=== PATIENT | male | born 1945 | race Caucasian/White ===

== ENCOUNTER 2018-11-22 08:46 | Inpatient (IN) ==
[2018-11-22] MEDS ORDERED: DUONEB (A & A) INH ONE (09:11)
--- NOTE | 2018-11-22 09:15 | PROVIDER DOCUMENTATION ---
HPI-Respiratory General - General Chief Complaint: Shortness of Breath Stated Complaint: OXYGEN LEVEL LOW,NAUSEA,LYLE Time Seen by Provider: 11/22/18 09:04 Source: patient, family Allergies/Adverse Reactions: Patient Allergies Allergy/AdvReac Type Severity Reaction Status Date / Time No Known Allergies Allergy Verified 11/22/18 08:55 Home Medications: Home Medication List Medication Instructions Recorded Confirmed Last Taken Type Allopurinol [Zyloprim] 100 mg PO DAILY 10/31/12 11/22/18 05/02/17 History Verapamil [Isoptin] 240 mg PO DAILY 10/31/12 11/22/18 05/02/17 History Cholecalciferol (Vitamin D3) 400 unit PO DAILY 03/13/15 11/22/18 05/02/17 His tory [Vitamin D3] Cyanocobalamin (Vitamin B-12) 1,000 mcg PO DAILY 03/13/15 11/22/18 05/02/17 History [Vitamin B-12] Hydrocodone/Acetaminophen [[place] 1 each PO 3-4XDAY PRN PRN #20 12/28/15 11/22/18 05/02/17 Rx 7.5-325 Tablet] tablet Metformin [Glucophage] 500 mg PO BID CC 12/28/15 11/22/18 05/02/17 History Aspirin [Aspir-Low] 81 mg PO DAILY 11/22/18 11/22/18 Unknown History Hydrochlorothiazide 12.5 mg PO DAILY 11/22/18 11/22/18 Unknown History Ondansetron Odt [Zofran 8Mg Odt] 8 mg PO Q8H PRN PRN 11/22/18 11/22/18 Unknown History Ranitidine HCl 300 mg PO DAILY 11/22/18 11/22/18 Unknown History Trandolapril 4 mg PO DAILY 11/22/18 11/22/18 Unknown History - History of Present Illness-Resp Quality of Pain: reports: none Onset/Duration: reports: gradual, 24 hours ago Timing: reports: still present Context: reports: other (COPD history and recent pulm contusion) Exposure: reports: unknown cause Cough Quality/Degree: reports: mild Episode Frequency: chronic episodes Current Respiratory Medication Therapy: Initiated other (has "inhaler" at home but hasn't used it.) Associated Symptoms: reports: cough, dizziness, other (hypoxia on home O2 device) Similar Symptoms Previously?: Yes Recently seen or treated by another doctor?: Yes Review of Systems - Adult - REVIEW OF SYSTEMS - ADULT Constitutional: reports: no symptoms reported Eyes: reports: no symptoms reported Ears, Nose, Mouth & Throat: reports: no symptoms reported Cardiovascular: reports: see HPI Respiratory: reports: see HPI Gastrointestinal: reports: nausea (mild intermittent) Genitourinary: reports: no symptoms reported Musculoskeletal: reports: no symptoms reported Integumentary: reports: no symptoms reported Neurological: reports: dizziness/vertigo Psychiatric: reports: no symptoms reported Endocrine: reports: no symptoms reported Hematologic/Lymphatic: reports: no symptoms reported Allergic/Immunologic: reports: no symptoms reported All Other Systems: Reviewed and Negative Past History - Adult - PAST MEDICAL HISTORY-ADULT Review of Records: reports: Old Records Reviewed Major Childhood Illnesses: reports: denies history Cardiovascular: reports: HTN Musculoskeletal: reports: chronic pain (back) Endocrine/Immune: reports: Diabetes Other Conditions: reports: denies history - PRIOR SURGERIES/PROCEDURES Surgical/Procedure History: reports: appendectomy, cholecystectomy, back/neck (back) - IMMUNIZATION STATUS Childhood Immunizations: See Nurse Assessment Flu Vaccine: See Nurse Assessment - FAMILY HISTORY Family History: reviewed, not pertinent Physical Exam-General - PHYSICAL EXAM-ADULT Initial Vital Signs Reviewed: Yes - CONSTITUTIONAL General Appearance: appears well, mild distress - EYES Eyes: PERRL/EOMI, pink conjunctivae - HEAD, EARS, NOSE, MOUTH & THROAT HENMT: normocephalic/atraumatic, moist mucous membranes - NECK Neck: non-tender, full range of motion, supple - RESPIRATORY Respiratory: chest non-tender, lungs clear, normal breath sounds, no accessory muscle use. negative: accessory muscle use - CARDIOVASCULAR Cardiovascular: normal peripheral pulses, regular rate, rhythm, no edema - GASTROINTESTINAL (ABDOMEN) Abdominal Exam: normal bowel sounds, non tender, soft - MUSCULOSKELETAL Back Exam: normal inspection, no CVA tenderness, no vertebral tenderness Extremity: normal range of motion, non-tender, normal inspection, no pedal edema - SKIN Integumentary: normal color, normal turgor, warm/dry - NEUROLOGIC Neurologic: credit intern II-XII nml as tested, grossly normal, no motor/sensory deficits - PSYCHIATRIC Psych/Mental Status: normal mood/affect, normal thought content, normal thought process, oriented x 3 Progress - PLAN OF CARE/RESULTS Progress/Plan/Lab Results: Laboratory Results - last 24 hr 11/22/18 11/22/18 11/22/18 09:26 09:26 09:26 WBC 9.94 RBC 5.09 Hgb 15.3 Hct 46.9 MCV 92.1 MCH 30.1 MCHC 32.6 L RDW Std Deviation 12.6 Plt Count 181 MPV 10.6 H Immature Gran % (Auto) 0.9 H Neut % (Auto) 62.6 Lymph % (Auto) 23.5 [place] % (Auto) 8.1 Eos % (Auto) 4.3 Baso % (Auto) 0.6 Immature Gran # (Auto) 0.09 H Neut # (Auto) 6.21 Lymph # (Auto) 2.34 [place] # (Auto) 0.81 H Eos # (Auto) 0.43 Baso # (Auto) 0.06 PT INR PTT (Actin FS) D-Dimer, Quantitative 0.49 Specimen Type Sample Site pH pCO2 pO2 HCO3 Base Excess Oxyhemoglobin ABG O2 Sat (Calculated) ABG O2 Saturation ABG Carboxyhemoglobin ABG Methemoglobin Simeon Test A-a O2 Difference Total Hemoglobin Lactate Liter Flow Blood Gas Modality FiO2 % Sodium 136 Potassium 4.7 Chloride 90 L Carbon Dioxide 37 H Anion Gap 9 BUN 18 Creatinine 1.3 H Estimated GFR/1.73 m2 54 BUN/Creatinine Ratio 14 Glucose 137 H Calculated Osmolality 276 Calcium 9.4 Total Bilirubin 0.61 AST 23 ALT 31 Alkaline Phosphatase 59 Troponin T Nai-L-Itaeczyphvh Pept Total Protein 7.9 Albumin 4.4 Globulin 3.5 Albumin/Globulin Ratio 1.3 Plasma Lactate 11/22/18 11/22/18 11/22/18 09:26 09:26 09:26 WBC RBC Hgb Hct MCV MCH MCHC RDW Std Deviation Plt Count MPV Immature Gran % (Auto) Neut % (Auto) Lymph % (Auto) [place] % (Auto) Eos % (Auto) Baso % (Auto) Immature Gran # (Auto) Neut # (Auto) Lymph # (Auto) [place] # (Auto) Eos # (Auto) Baso # (Auto) PT 13.3 INR 0.94 PTT (Actin FS) 28.2 D-Dimer, Quantitative Specimen Type Sample Site pH pCO2 pO2 HCO3 Base Excess Oxyhemoglobin ABG O2 Sat (Calculated) ABG O2 Saturation ABG Carboxyhemoglobin ABG Methemoglobin Simeon Test A-a O2 Difference Total Hemoglobin Lactate Liter Flow Blood Gas Modality FiO2 % Sodium Potassium Chloride Carbon Dioxide Anion Gap BUN Creatinine Estimated GFR/1.73 m2 BUN/Creatinine Ratio Glucose Calculated Osmolality Calcium Total Bilirubin AST ALT Alkaline Phosphatase Troponin T < 0.010 Wuf-K-Ggryqwwbrdj Pept 165 Total Protein Albumin Globulin Albumin/Globulin Ratio Plasma Lactate 11/22/18 11/22/18 09:26 11:49 WBC RBC Hgb Hct MCV MCH MCHC RDW Std Deviation Plt Count MPV Immature Gran % (Auto) Neut % (Auto) Lymph % (Auto) [place] % (Auto) Eos % (Auto) Baso % (Auto) Immature Gran # (Auto) Neut # (Auto) Lymph # (Auto) [place] # (Auto) Eos # (Auto) Baso # (Auto) PT INR PTT (Actin FS) D-Dimer, Quantitative Specimen Type ARTERIAL Sample Site R RADIAL pH 7.38 pCO2 64 H* pO2 55 L HCO3 32.4 H Base Excess 9.9 H Oxyhemoglobin 88.8 L* ABG O2 Sat (Calculated) 18.6 ABG O2 Saturation 91.7 L ABG Carboxyhemoglobin 2.40 ABG Methemoglobin 0.7 Simeon Test YES A-a O2 Difference 93.0 Total Hemoglobin 14.9 Lactate 1.00 Liter Flow 3.0 Blood Gas Modality CANNULA FiO2 % 32.0 Sodium Potassium Chloride Carbon Dioxide Anion Gap BUN Creatinine Estimated GFR/1.73 m2 BUN/Creatinine Ratio Glucose Calculated Osmolality Calcium Total Bilirubin AST ALT Alkaline Phosphatase Troponin T Zug-H-Ershniklkrs Pept Total Protein Albumin Globulin Albumin/Globulin Ratio Plasma Lactate 1.0 Orders Category Date Time Status Admit - [facility] Routine AdmDCTranf 11/22/18 11:26 Active Activity - Up with Assistance ORDERED Care 11/22/18 12:05 Active FSBS/Accucheck Result AC + HS Care 11/22/18 11:34 Active Intake and Output-Strict ORDERED Care 11/22/18 12:05 Active Nursing- Assist w/ IS as order ORDERED Care 11/22/18 12:05 Active Saline Loc DIRECTED Care 11/22/18 12:05 Active Turn, Cough and Deep Breathe Q4HR.AWAKE Care 11/22/18 12:05 Active Vital Signs Order Q 4-HR ASSESS Care 11/22/18 12:05 Active Z-Document. for Tele Applied ORDERED Care 11/22/18 12:05 Completed MD [Physician/Provider Consults] Routine Cons 11/22/18 11:20 Ordered Regular Diet Diet 11/22/18 11:26 Active CHEST-2 VIEWS [RAD] Routine Exams 11/23/18 06:00 Ordered CHEST-2 VIEWS [RAD] Stat Exams 11/22/18 09:10 Completed ABG [RESP] Routine Lab 11/22/18 11:49 Completed BLOOD CULTURE [BLDCUL] Stat Lab 11/22/18 10:43 Results CBC WITH DIFF [HEME] Routine Lab 11/23/18 06:40 Results CBC WITH ELECTRONIC DIFF [HEME] Stat Lab 11/22/18 09:26 Completed COMPREHENSIVE METABOLIC PANEL [CHEM] Routine Lab 11/23/18 06:40 Received COMPREHENSIVE METABOLIC PANEL [CHEM] Stat Lab 11/22/18 09:26 Completed D-DIMER [COAG] Stat Lab 11/22/18 09:26 Completed LACTATE, PLASMA [CHEM] Stat Lab 11/22/18 09:26 Completed PRO B-NATRIURETIC PEPTIDE Stat Lab 11/22/18 09:26 Completed PROTIME WITH INR [COAG] Stat Lab 11/22/18 09:26 Completed PTT [COAG] Stat Lab 11/22/18 09:26 Completed TROPONIN T Stat Lab 11/22/18 09:26 Completed 0.9% Sodium Chloride Inj [Ns] 1,000 ml Med 11/22/18 11:30 Active IV 75 mls/hr Acetaminophen [Tylenol] Med 11/22/18 11:26 Active 650 mg PO Q4-6H PRN PRN Albuterol 2.5MG/Ipratrop 0.5MG [Duoneb (A & A)] Med 11/22/18 09:11 Discontinued 3 ml INH NOW ONE Albuterol 2.5MG/Ipratrop 0.5MG [Duoneb (A & A)] Med 11/22/18 11:30 Active 3 ml INH RTQ4H Allopurinol [Zyloprim] Med 11/22/18 12:00 Active 100 mg PO DAILY Aspirin EC Med 11/23/18 09:00 Active 81 mg PO DAILY Azithromycin 500 mg/Ns [Zithromax 500 mg/Ns] Med 11/22/18 11:19 Discontinued 500 mg in 250 ml IV NOW Budesonide [Pulmicort] Med 11/22/18 19:30 Active 0.5 mg INH RTBID CefTRIAXONE [Rocephin] 1 gm Med 11/23/18 09:00 Active 0.9% Sodium Chloride Inj [Ns] 50 ml IV Q24H CefTRIAXONE [Rocephin] 2 gm Med 11/22/18 11:19 Discontinued 0.9% Sodium Chloride Inj [Ns] 50 ml IV NOW Cholecalciferol (Vitamin D3) [Vitamin D] Med 11/22/18 12:00 Active 400 unit PO DAILY Cyanocobalamin [Vitamin B-12] Med 11/22/18 12:00 Active 1,000 microgm PO DAILY Enoxaparin [Lovenox] Med 11/23/18 09:00 Active 30 mg SUBQ Q24H Hydrochlorothiazide Med 11/22/18 12:00 Active 12.5 mg PO DAILY Hydrocodone/APAP 7.5 mg/325 mg [[place]-7.5] Med 11/22/18 11:27 Active 1 each PO 3-4XDAY PRN PRN Insulin Human Regular [Humulin R] Med 11/22/18 16:00 Active See Protocol SUBQ 0700,1100,1600,2100 Methylprednisolone Sod Succ [Solu-Medrol] Med 11/22/18 14:00 Active 40 mg IV Q8H Ondansetron [Zofran] Med 11/22/18 11:26 Active 4 mg IV Q4H PRN PRN Ranitidine [Zantac] Med 11/22/18 12:00 Active 300 mg PO DAILY TRANDOLApril [Mavik] Med 11/22/18 12:00 Active 4 mg PO DAILY Verapamil S.r. [Isoptin Sr] Med 11/22/18 12:00 Active 240 mg PO DAILY Aerosol Treatments Routine Ot 11/22/18 09:11 Completed Aerosol Treatments Routine Ot 11/22/18 11:26 Completed Aerosol Treatments Stat Ot 11/22/18 09:11 Completed Incentive Spirometer Q4HR.AWAKE Ot 11/22/18 13:00 Completed Incentive Spirometer Q4HR.AWAKE Ot 11/22/18 17:00 Completed Incentive Spirometer Q4HR.AWAKE Ot 11/22/18 21:00 Completed Incentive Spirometer Q4HR.AWAKE Ot 11/23/18 01:00 Completed Incentive Spirometer Q4HR.AWAKE Ot 11/23/18 05:00 Completed Incentive Spirometer Q4HR.AWAKE [facility] 11/23/18 09:00 Completed Oxygen Device Routine Ot 11/22/18 12:05 Completed Peak Flow BID Ot 11/22/18 21:00 Completed Peak Flow BID [facility] 11/23/18 09:00 Completed Pulse Oximetry Routine Ot 11/22/18 12:05 Completed Telemetry [OM.EQ] Routine Ot 11/22/18 12:05 Active Transfer/Admit Order [TRANSFER] Routine Transfer 11/22/18 11:20 Completed Result Diagrams: 11/22/18 09:26 11/22/18 09:26 Departure - Departure Date of Disposition Decision: 11/22/18 Time of Disposition Decision: 12:00 DIAGNOSIS: COPD exacerbation, Hypoxemia Disposition: ADMITTED INPATIENT 09 Certified Medical Emergency: Emergent Condition: Serious - Critical Care Note This patient required my direct & personal management of CC.: No Attestation - Physician/ XUAN Attestation Patient care was provided by Advanced Practice Provider:: No The physician spent face to face time with patient:: Yes Advanced Practice Provider documentation review:: Supervising physician onsite and consulted in the evaluation and care of this patient. The physician did have a face to face encounter with the patient.
[2018-11-22 09:40] LABS: BASO# 0.06 X1000 (0.0-0.2); BASO% 0.6 % (0.0-0.8); EOS# 0.43 X1000 (0.0-0.7); EOS% 4.3 % (0.0-10.0); HEMATOCRIT 46.9 % (42.0-52.0); HEMOGLOBIN 15.3 g/dL (14.0-18.0); IMM GRAN# 0.09 X1000 (0.0-0.04); IMM GRAN% 0.9 % (0.0-0.5); LYMPH# 2.34 X1000 (1.2-3.4); LYMPH% 23.5 % (20.5-51.1); MCH 30.1 PG (27-31); MCHC 32.6 g/dL (33-37); MCV 92.1 FL (81-99); MONO# 0.81 X1000 (0.11-0.59); MONO% 8.1 % (1.7-9.3); MPV 10.6 FL (7.4-10.4); NEUT# 6.21 X1000 (1.4-6.5); NEUT% 62.6 % (42.2-75.2); PLT 181 X1000 (130-400); RBC 5.09 XMIL (4.7-6.1); RDW 12.6 % (11.5-14.5); WBC 9.94 X1000 (4.8-10.8)
[2018-11-22 09:47] LABS: INR 0.94; PROTIME 13.3 Seconds (11.0-16.0); PTT 28.2 Seconds (22.3-41.8)
[2018-11-22 10:18] LABS: ALB/GLOB RATIO 1.3; ALBUMIN 4.4 g/dL (3.5-5.0); CALCIUM 9.4 mg/dL (8.8-10.2); CREATININE 1.3 mg/dL (0.7-1.2); POTASSIUM 4.7 mmol/L (3.5-5.1); TOTAL BILIRUBIN 0.61 mg/dL (0.20-1.00); TOTAL PROTEIN 7.9 g/dL (6.3-8.3)
--- NOTE | 2018-11-22 10:23 | ED EKG INTERP ---
This chart was entered by Jayda Murillo Scribe, acting as scribe for Trae Mcgraw MD. EKG Interpretation - EKG Time of EKG reading by physician:: 09:01 EKG Read and Signed by:: Trae Mcgraw EKG Interpretation (*Must complete 3 of following elements*): Normal Rate: 73 Rhythm: sinus rhythm with 1st degree av block [place]: normal QRS: normal [place] Interval: normal ST Wave: normal Attestation - Physician/ XUAN Attestation Patient care was provided by Advanced Practice Provider:: No The physician spent face to face time with patient:: Yes Advanced Practice Provider documentation review:: Supervising physician onsite and consulted in the evaluation and care of this patient. The physician did have a face to face encounter with the patient. This chart was documented by the indicated scribe, (Jayda Murillo Scribe) and accurately reflects the services I performed and decisions made by me, Trae Mcgraw MD, as attested by the provider's signature.
--- NOTE | 2018-11-22 10:36 | Diag Imaging Result Doc PS360 ---
EXAM: CHEST-2 VIEWS HISTORY: short of breath TECHNIQUE: Chest two views COMPARISON: 12/28/2015 FINDINGS: The lungs are well expanded. The heart is not enlarged. The vessels are not distended. There are increased interstitial markings in the lung bases. No pleural effusions. IMPRESSION: Basilar atelectasis versus tiny infiltrates. Electronically signed by Bruno Abarca 11/22/2018 10:34 AM
[2018-11-22] MEDS ORDERED: ZITHROMAX 500 MG/NS 500 MG/250 ML IVPB IV ONE (11:19)
[2018-11-22] MEDS ORDERED: ROCEPHIN 2 GM in NS 50 ML IV ONE (11:19)
[2018-11-22] MEDS ORDERED: TYLENOL PO PRN (11:26)
[2018-11-22] MEDS ORDERED: ZOFRAN IV PRN (11:26)
[2018-11-22] MEDS: HYDROCHLOROTHIAZIDE PO SCH (11:46)
[2018-11-22] MEDS: NS 1,000 ML IV SCH (11:47)
[2018-11-22] MEDS: ZANTAC PO SCH (11:53)
[2018-11-22] MEDS: VITAMIN B-12 PO SCH (11:55)
[2018-11-22] MEDS: ZYLOPRIM PO SCH (11:55)
[2018-11-22] MEDS: ISOPTIN SR PO SCH ×2 (11:56→12:00)
[2018-11-22 11:59] LABS: ALLEN TEST YES; BE 9.9 mmoll (-3.0-3.0); BLOOD TYPE ARTERIAL; HCO3-(ACT) 32.4 mmoll (20.0-26.0); METHB 0.7 % (0.0-1.5); O2(CT) 18.6 mL/dL (15.0-23.0); PO2(98.6) 55 mmHg (60-100); SAMPLE BLOOD; SAO2 91.7 % (95.0-100.0); THB 14.9 g/dL (11.5-17.4); pH(98.6) 7.38 (7.35-7.45)
[2018-11-22] MEDS: DUONEB (A & A) INH SCH ×4 (11:59→22:50)
[2018-11-22] MEDS: VITAMIN D PO SCH (12:00)
[2018-11-22] MEDS ORDERED: ISOPTIN SR PO SCH (12:00)
[2018-11-22] MEDS: MAVIK PO SCH (12:00)
[2018-11-22 12:02] LABS: MODALITY CANNULA; O2HB 88.8 % (95.0-99.0); PCO2(98.6) 64 mmHg (35-45)
--- NOTE | 2018-11-22 12:49 | EKG Report ---
Test Performed on : 11/22/2018 09:01:09 AM Test Reason : ED. NO EKG ORDER FOR MUSE Blood Pressure : / mmHG Vent. Rate : 073 BPM Atrial Rate : 073 BPM P-R Int : 262 ms QRS Dur : 072 ms QT Int : 364 ms P-R-T Axes : 092 019 025 degrees QTc Int : 401 ms Sinus rhythm. with 1st degree AV block. Otherwise normal ECG When compared with ECG of 13-MAR-2015 09:32, No significant change was found Unconfirmed Result
--- NOTE | 2018-11-22 13:10 | HISTORY AND PHYSICAL ---
PRIMARY CARE PHYSICIAN: Courtney Kamara CONSERVATOR ARTIFACTS: Dr. Schwab PRIME MINISTER: Dr. Yan CHIEF COMPLAINT: Shortness of breath and low oxygen. HISTORY OF PRESENT ILLNESS: Mr. Raheem Gonzalez is a 73-year-old male with a medical history of BPH, hypertension, diabetes mellitus, gout, GERD, COPD on 2.5 L of oxygen at home, is here with complaints of shortness of breath. He states that around 3 or 4 months ago, he had a fall in his garage and was diagnosed with a pulmonary contusion in the left at [facility] where he was admitted for a couple of days. Since then, he has had no energy. He has had spells of nausea and headaches, dizziness, lightheadedness. The phlegm is clear that he coughs up, and he states that his average O2 saturation is around 90% up until last night. Apparently it had dropped down to 56%. He had issues with sleeping and worsening shortness of breath. He denies fever or chills. He comes [facility] to [facility] with these complaints, and he has lower oxygen saturations on his usual dosing of oxygen, which improved after 4 L and breathing treatments. X- ray reveals bibasilar infiltrates, so we will admit and treat him for pneumonia and mild hypoxia. PAST MEDICAL HISTORY: 1. BPH. 2. Hypertension. 3. Diabetes mellitus type 2. 4. Left renal mass that is size 2.3, under surveillance by Dr. Gay. 5. Gout. 6. GERD. 7. Obstructive sleep apnea, will be having a workup soon. 8. COPD, on 2.5 L at home. PAST SURGICAL HISTORY: 1. Left foot and ankle surgery. 2. Two back lipoma excisions. 3. Penile prosthesis. 4. T1 disk removed. SOCIAL HISTORY: Quit smoking in 1992. Prior to that smoked 3 to 4 packs per day for 20 years. Denies alcohol or illicit drug use. He lives at home with his of 47 years. FAMILY HISTORY: Mother had CKD and end stage renal disease. Father had brain cancer. Brother had Crohn's. Sister has scleroderma. A daughter from cervical cancer. ALLERGIES: No known drug allergies. HOME MEDICATIONS: 1. Aspirin 81 mg p.o. daily. 2. Glucophage 500 mg p.o. twice daily. 3. Hydrochlorothiazide 12.5 mg p.o. daily. 4. Verapamil 240 mg p.o. daily. 5. Zantac 300 mg p.o. daily. 6. Trandolapril 4 mg p.o. daily. 7. Vitamin B12 1000 mcg p.o. daily. 8. Vitamin D3 400 units p.o. daily. 9. Zofran 8 mg p.o. every 8 hours p.r.n. 10.Allopurinol 100 mg p.o. daily. 11.[place] 7.5 one tab p.o. 3 to 4 times per day p.r.n. REVIEW OF SYSTEMS: A 14-point review of systems is complete, and all are negative except for those mentioned in the above HPI. PHYSICAL EXAMINATION: VITAL SIGNS: Temperature 97.6, heart rate 74, respiratory rate 22, blood pressure 147/77, O2 saturation is 91% on 3.5 L nasal cannula. Height 6 feet 1 inch tall, 286 pounds, BMI is 37.7. GENERAL: Mr. Raheem Gonzalez is a 73-year-old male. He is in no acute distress. He is able to answer questions appropriately. HEENT: Atraumatic and normocephalic. Pupils are equal, round and reactive to light. Extraocular movements were intact. Mucous membranes are dry. NECK: Trachea midline. CARDIOVASCULAR: S1, S2. Regular rate and rhythm. No rubs, gallops or murmurs. Trace lower extremity edema. Plus 2 dorsalis and radial pulses. Negative JVD or carotid bruits. PULMONARY: Clear to auscultation. Decreased in the bases. No accessory muscle use or work of breathing noted. GASTROINTESTINAL: Soft, nontender and nondistended. Positive bowel sounds x4. EXTREMITIES: Moves all extremities equally with full range of motion. NEUROLOGICAL: Alert and oriented x3. Follows commands. Sensory is intact. SKIN: Warm, dry and intact. DIAGNOSTIC DATA: White blood cells 9000, hemoglobin 15, hematocrit 46, platelet count 181. INR is 0.94. PTT is 28.2. D-dimer is 0.49. ABGs on 3 L showed pH of 7.38, pCO2 of 64, pO2 of 55, bicarb 32, base excess 9.9, saturation 91%, lactate 1.0. Sodium is 136, potassium 4.7, BUN is 18, creatinine 1.3, glucose 137, calcium 9.4, bilirubin 0.61, AST is 23, ALT is 31. Troponin less than 0.01. ProBNP is 165. Albumin is 4.4. Serum lactate is 1.0. IMAGING: Chest x-ray with bibasilar atelectasis versus tiny infiltrates. EKG is normal sinus rhythm with a first degree AV block, rate is 73. ASSESSMENT AND PLAN: 1. Chronic obstructive pulmonary disease exacerbation with hypoxemia, hypercarbia, requiring a little more oxygen. We will do steroids, titrate oxygen, nebulizers and antibiotic coverage with Rocephin. Also consult Dr. Yan who is his primary conduit helper. 2. Bibasilar pneumonia. Do incentive spirometer and Rocephin. He did get azithromycin as well in the ER. 3. Benign prostatic hypertrophy. 4. Hypertension. Continue home medications. 5. Diabetes mellitus type 2. We will do pattern blood glucose with sliding scale insulin. 6. It looks like he probably has chronic kidney disease stage 3 also with a left renal mass that is under surveillance. No changes on that. 7. Gout. Continue his medication. 8. Gastroesophageal reflux disease. Continue home medications. 9. Likely obstructive sleep apnea which he is being evaluated for. 10.DVT prophylaxis with Lovenox. Dictated by OJ Montes for Chandrakant Shields MD cc: OJ Montes MD
[2018-11-22] MEDS: HUMULIN R SUBQ SCH ×2 (15:42→20:51)
[2018-11-22] MEDS: SOLU-MEDROL IV SCH (15:50)
--- NOTE | 2018-11-22 18:43 | PROGRESS NOTE ---
DATE: 11/22/2018 Mr. Raheem Gonzalez is a 73-year-old male who presented to the hospital because of shortness of breath as well as hypoxia. He does have a history of COPD. Vital signs: At the time of presentation, Temperature 97.6 degrees, pulse 74, respirations 22, blood pressure 147/77, oxygen saturation is 91% on 3.5 L. Cardiovascular system: S1, S2. Respiratory System: Good entry bilaterally. Abdomen: Obese, nontender. No masses felt. Extremities: No evidence of edema. X-ray of his chest showed evidence of bibasilar atelectasis versus tiny infiltrates. The patient will be managed as a case of chronic obstructive pulmonary disease as well as a pneumonia. He will be placed on nebulized bronchodilators, steroids, as well as antibiotics. cc: Chandrakant Shields MD MTDD
[2018-11-22] MEDS: PULMICORT INH SCH (19:15)
[2018-11-22] MEDS: NORCO-7.5 PO PRN (20:42)
[2018-11-23] MEDS: NS 1,000 ML IV SCH (02:10)
[2018-11-23] MEDS: SOLU-MEDROL IV SCH ×4 (03:00→21:59)
[2018-11-23] MEDS: DUONEB (A & A) INH SCH ×6 (03:30→23:10)
[2018-11-23] MEDS: HUMULIN R SUBQ SCH ×4 (06:00→21:21)
[2018-11-23 07:07] LABS: BASO# 0.01 X1000 (0.0-0.2); BASO% 0.1 % (0.0-0.8); HEMOGLOBIN 15.1 g/dL (14.0-18.0); IMM GRAN# 0.05 X1000 (0.0-0.04); IMM GRAN% 0.5 % (0.0-0.5); LYMPH% 10.7 % (20.5-51.1); MCH 30.2 PG (27-31); MCHC 33.6 g/dL (33-37); MONO# 0.15 X1000 (0.11-0.59); MONO% 1.6 % (1.7-9.3); MPV 10.8 FL (7.4-10.4); NEUT% 87.1 % (42.2-75.2); PLT 181 X1000 (130-400); RDW 12.5 % (11.5-14.5); WBC 9.31 X1000 (4.8-10.8)
[2018-11-23 07:16] LABS: HEMOGLOBIN A1C 6.5 % (4.8-6.0)
[2018-11-23 07:24] LABS: ALB/GLOB RATIO 1.4; ALBUMIN 4.5 g/dL (3.5-5.0); CALCIUM 9.3 mg/dL (8.8-10.2); CREATININE 1.2 mg/dL (0.7-1.2); TOTAL BILIRUBIN 0.41 mg/dL (0.20-1.00); TOTAL PROTEIN 7.7 g/dL (6.3-8.3)
--- NOTE | 2018-11-23 07:55 | Diag Imaging Result Doc PS360 ---
EXAM: CHEST-2 VIEWS INDICATION: f/u on pna TECHNIQUE: 2 views COMPARISON: 11/22/2018 FINDINGS: Bibasilar atelectasis and/or infiltrates, worse on the left, are stable. No new consolidation is identified. Cardiac silhouette is stable. IMPRESSION: Stable chest. Electronically signed by George Rodríguez 11/23/2018 7:53 AM
[2018-11-23] MEDS: PULMICORT INH SCH ×2 (07:59→19:49)
[2018-11-23] MEDS: ZYLOPRIM PO SCH (09:43)
[2018-11-23] MEDS: VITAMIN B-12 PO SCH (09:43)
[2018-11-23] MEDS: ZANTAC PO SCH (09:43)
[2018-11-23] MEDS: HYDROCHLOROTHIAZIDE PO SCH (09:43)
[2018-11-23] MEDS: ROCEPHIN 1 GM in NS 50 ML IV SCH (09:43)
[2018-11-23] MEDS: ASPIRIN EC PO SCH (09:43)
[2018-11-23] MEDS: ISOPTIN SR PO SCH (09:44)
[2018-11-23] MEDS: LOVENOX SUBQ SCH (09:45)
[2018-11-23] MEDS: VITAMIN D PO SCH (09:45)
[2018-11-23] MEDS: MAVIK PO SCH (09:45)
[2018-11-23] MEDS: NORCO-7.5 PO PRN ×2 (13:23→17:44)
--- NOTE | 2018-11-23 13:33 | PROGRESS NOTE ---
DATE: 11/23/2018 SUBJECTIVE: The patient is resting comfortably in bed. OBJECTIVE: Vital signs: Vital signs are as follows: Temperature 98.7 degrees, pulse of 97, respiratory rate 24, blood pressure 150/73, oxygen saturation 100%. HEENT: Atraumatic, normocephalic. Cardiovascular system: S1, S2. Respiratory system: Has evidence of good entry bilaterally. Abdomen: Soft, nontender. No masses felt. Extremities: No evidence of edema. Central nervous system: No obvious focal deficits noted. LABS: Labs are as follows: WBC is 9.31, hematocrit is 45, with a platelet count of 181. Sodium is 134, potassium 5.0, chloride is 90, bicarbonate 32. BUN is 21, creatinine is 1.2, glucose is 197. X-RAYS: X-ray of chest shows bibasilar atelectasis and/or infiltrates, worse on the left. ASSESSMENT AND PLAN: 1. Chronic obstructive pulmonary disease exacerbation. Maintain patient on nebulized bronchodilators, steroids, as well as antibiotics. 2. Community-acquired pneumonia. Continue antibiotics. Maintain patient on oxygen. 3. Benign prostatic hypertrophy. Maintain patient on tamsulosin. 4. Diabetes mellitus. Continue blood sugar monitoring, as well as sliding scale insulin. 5. Hypertension. Optimize blood pressure control using oral agent. 6. Chronic kidney disease. Follow up on renal function. Avoid nephrotoxic agent. 7. History of query left renal mass. We will get a CT scan of the abdomen and pelvis without contrast. 8. Gastroesophageal reflux disease. Continue proton pump inhibitor. 9. Deep vein thrombosis prophylaxis. Lovenox. cc: Chandrakant Shields MD
--- NOTE | 2018-11-23 14:08 | Diag Imaging Result Doc PS360 ---
CT HEAD W/O CONTRAST - 11/23/2018 INDICATION: headaches COMPARISON: 10/31/2012 FINDINGS: The ventricles and sulci are normal in size and contour. No intracranial mass or hemorrhage. The skull is intact. There is a small air-fluid level in the left maxillary sinus compatible with sinusitis. IMPRESSION: Left maxillary sinusitis. This exam was performed using automated exposure control, adjustment of mA or kV according to patient size, and/or use of iterative reconstruction technique Electronically signed by Gaurva Andujar 11/23/2018 2:05 PM
--- NOTE | 2018-11-23 14:31 | Diag Imaging Result Doc PS360 ---
EXAM: CT ABDOMEN/PELVIS W/O CONTRAST HISTORY: left renal mass TECHNIQUE: CT abdomen and pelvis without contrast. COMPARISON: None. FINDINGS: The gallbladder has been removed. No focal hepatic abnormality identified on this noncontrasted exam. Spleen is not enlarged. Normal pancreas and adrenal glands. There are several renal cysts as well as nonspecific small hyperdense renal lesions arising from both kidneys. There is a 2 mm nonobstructing right lower pole renal stone. No hydronephrosis. Prominent atherosclerosis. No aortic aneurysm. No bowel obstruction. No ascites. No abscess. The prostate measures 5.8 cm in transverse diameter and there are internal prostatic calcifications. There are fat filled inguinal hernias. There is a penile implant. IMPRESSION: 1.Scattered renal cysts as well as tiny nonspecific hyperdense renal lesions. 2.Cholecystectomy 3.Prominent atherosclerosis 4.Small fat filled inguinal hernias This exam was performed using automated exposure control, adjustment of mA or kV according to patient size, and/or use of iterative reconstruction technique. Electronically signed by Bruno Abarca 11/23/2018 2:29 PM
[2018-11-23] MEDS: AMBIEN PO SCH (21:20)
--- NOTE | 2018-11-24 02:56 | PULMONOLOGY CONSULTATION ---
DATE: 11/23/2018 REASON FOR CONSULTATION: COPD and pneumonia, patient known to you. HISTORY OF PRESENT ILLNESS: Mr. Gonzalez is a 73-year-old white male with an 80 pack-year history for tobacco, who was scheduled to see me as a new patient in the near future, so is not actually yet known to this practitioner. The patient has history of COPD and morbid obesity with a BMI which approaches 40. The patient reports over approximately 2 months ago he fell and landed on his left chest, and believes he developed a pulmonary contusion and possible rib fracture. He reports he has not felt well since that time. On the day of admission, the patient woke up with cough and shortness of breath with oxygen saturation between 50% and 70%. The patient underwent a chest x- ray which revealed mild bibasilar infiltrates. The patient does report he has significant reflux and will use Tums 3 to 4 times each week. He eats supper between 7 and 9 p.m., and goes to bed around 9:30 each evening. He frequently will snack before bed, which may include eating a sandwich. He currently has the head of his bed elevated, which is a new pattern for this patient. The patient also reports that milk products will markedly exacerbate his reflux. He denies fevers or chills, but has increased cough of white-yellow sputum. PAST MEDICAL HISTORY: 1. COPD, on chronic oxygen therapy. 2. Morbid obesity with BMI of 39.5. 3. Hypertension. 4. Diabetes mellitus. 5. Renal nodules, followed by Dr. Gay. 6. Gastroesophageal reflux, as per HPI. 7. History of gout. 8. Thoracic spine surgery. 9. Status post left ankle surgery. 10. Gout. SOCIAL HISTORY: The patient smoked, has approximately 80 pack-year history for tobacco, but has not smoked for the last 20 years. No alcohol use. He is . FAMILY HISTORY: Positive for cervical cancer, scleroderma, kidney disease, and Crohn disease. REVIEW OF SYSTEMS: Notable for fatigue, increased cough, increased sputum production, hypoxemia as per above. PHYSICAL EXAMINATION: General: Reveals an obese white male resting comfortably on nasal cannula, in no distress. Vital signs: He has been afebrile during this hospitalization. Blood pressure 140/73, heart rate 87, respiratory rate 18, oxygen saturation 91% on 3 L per nasal cannula. HEENT: Pupils are equal and reactive. Oropharynx is clear. Neck: Supple. Chest: Reveals diminished breath sounds bilaterally with prolonged expiratory phase. Cardiac: S1, S2. Abdomen: Protuberant/obese. Extremities: Reveal trace edema. LABORATORIES: Chest x-ray as per HPI. Arterial blood gas reveals a pH 7.38, pCO2 of 64, pO2 of 54 on 3 L per nasal cannula. White blood count 9.3, hemoglobin 15.1, platelet count 181,000. Sodium 134, potassium 5.0, chloride 90, bicarbonate 32, BUN 21, creatinine 1.2. IMPRESSION: A 73-year-old with 1. Acute hypoxemic respiratory failure. 2. Chronic hypoxemic and chronic hypercapnic respiratory failure. 3. Community-acquired pneumonia. 4. Leukocytosis. 5. Gastroesophageal reflux with poor dietary habits, possibly leading to reflux and aspiration. 6. Morbid obesity. 7. Chronic obstructive pulmonary disease with exacerbation. RECOMMENDATIONS: 1. Discontinue IV fluids to prevent fluid retention and fluid overload. The patient will be at risk for fluid retention and fluid overload given his obesity and COPD. 2. Continue antibiotics for a community-acquired pneumonia. 3. Continue steroids with anticipation of oral steroids soon. 4. Continue bronchodilators. 5. Recommend reflux precautions. The patient should eat his small meal early in the evening. He should keep the head of his bed elevated. He should not eat before going to bed. 6. Long-term, patient would benefit from weight loss. 7. Long-term, the patient might need a sleep study, which could be determined as an outpatient. cc: David Yan MD
[2018-11-24] MEDS: DUONEB (A & A) INH SCH ×6 (03:58→23:32)
[2018-11-24] MEDS: SOLU-MEDROL IV SCH ×3 (05:48→22:44)
[2018-11-24] MEDS ORDERED: LASIX IV ONE (06:00)
[2018-11-24] MEDS: HUMULIN R SUBQ SCH ×4 (06:24→22:00)
[2018-11-24] MEDS: PULMICORT INH SCH ×2 (07:54→19:34)
[2018-11-24] MEDS: ROCEPHIN 1 GM in NS 50 ML IV SCH (10:43)
[2018-11-24] MEDS: ZYLOPRIM PO SCH (10:45)
[2018-11-24] MEDS: ISOPTIN SR PO SCH (10:45)
[2018-11-24] MEDS: HYDROCHLOROTHIAZIDE PO SCH (10:45)
[2018-11-24] MEDS: ASPIRIN EC PO SCH (10:47)
[2018-11-24] MEDS: ZANTAC PO SCH (10:47)
[2018-11-24] MEDS: VITAMIN B-12 PO SCH (10:47)
[2018-11-24] MEDS: LOVENOX SUBQ SCH (10:48)
[2018-11-24] MEDS: MAVIK PO SCH (12:15)
[2018-11-24] MEDS: VITAMIN D PO SCH (12:15)
[2018-11-24] MEDS: NORCO-7.5 PO PRN ×2 (12:16→18:46)
--- NOTE | 2018-11-24 14:40 | PROGRESS NOTE ---
DATE: 11/24/2018 SUBJECTIVE: Patient is awake, not in any obvious distress. OBJECTIVE: Vital signs: Temperature 98.2 degrees, pulse is 98, respiratory rate 16, blood pressure 151/76, oxygen pressure is 91%. HEENT: Atraumatic, normocephalic. Cardiovascular system: S1, S2. Respiratory system: Has evidence of good air entry bilaterally. Abdomen: Soft, obese, nontender. No masses felt. Extremities: No evidence of significant edema. Central nervous system: No obvious focal deficit noted. LABS: Blood sugar is 209. ASSESSMENT AND PLAN: 1. Chronic obstructive pulmonary disease exacerbation. Maintain patient on nebulized bronchodilators, steroids, as well as antibiotics. 2. Community-acquired pneumonia. Continue antibiotics. Maintain patient on oxygen supplementation. 3. Benign prostatic hypertrophy. Continue tamsulosin. 4. Diabetes mellitus. Continue blood sugar monitoring as well as sliding scale insulin. 5. Hypertension. Optimize blood pressure control using oral agent. 6. Chronic kidney disease. Follow up on renal function. Avoid nephrotoxic agent. 7. History of renal mass. CT scan of the abdomen and pelvis done without contrast does not show any such renal mass. However, there is mention of tiny, nonspecific, hyperdense renal lesions. We can get the patient to follow up with urologist for these in the outpatient. 8. Gastroesophageal reflux disease. Continue PPI. 9. Deep vein thrombosis prophylaxis. Lovenox. cc: Chandrakant Shields MD
[2018-11-24] MEDS ORDERED: FLOMAX PO SCH (21:00)
[2018-11-24] MEDS: AMBIEN PO SCH (22:44)
[2018-11-25] MEDS: DUONEB (A & A) INH SCH ×4 (03:40→15:13)
[2018-11-25] MEDS: SOLU-MEDROL IV SCH ×2 (06:20→14:30)
[2018-11-25] MEDS: HUMULIN R SUBQ SCH ×2 (06:20→12:04)
[2018-11-25] MEDS: PULMICORT INH SCH (07:58)
--- NOTE | 2018-11-25 08:15 | PULMONOLOGY PROGRESS NOTE ---
DATE: 11/24/2018 SUBJECTIVE: The patient is awake, alert and conversant. He reports his shortness of breath has diminished. His cough is resolving. OBJECTIVE: Vital Signs: The patient has been afebrile for the last 24 hours. Blood pressure 151/76, heart rate 98, respiratory rate 16, oxygen saturation 90% on 3 L per nasal cannula. HEENT: Pupils are equal and reactive. Oropharynx is clear. Neck: Neck is supple. Chest: Reveals distant breath sounds with bilateral wheeze. Cardiac exam: S1, S2. Abdomen: Soft and without hepatosplenomegaly. Extremities: Without edema. LABORATORIES: No new chemistry, blood gases or CBC. MICROBIOLOGY: No new microbiology data. IMPRESSION: A 73-year-old with: 1. Acute hypoxemic respiratory failure. 2. Chronic hypoxemic and chronic hypercapnic respiratory failure. 3. Mild community-acquired pneumonia. 4. Leukocytosis. 5. Gastroesophageal reflux with probable nocturnal aspiration events. 6. Morbid obesity. 7. Chronic obstructive pulmonary disease exacerbation. DISCUSSION: This is a 73-year-old with problems as outlined above. Clinically, he is improving, and hopefully can be discharged in the next 24 to 48 hours. RECOMMENDATIONS: 1. Continue antibiotics for community-acquired pneumonia. 2. Follow-up chest x-ray tomorrow for community-acquired pneumonia. 3. Recommend transitioning patient to oral steroids. 4. Continue bronchodilators. 5. Continue reflux precautions. 6. Weight loss has been discussed with this patient. 7. Consider outpatient sleep study. 8. Consider discharge home pending outcome of chest x-ray tomorrow. cc: David Yan MD
--- NOTE | 2018-11-25 08:31 | Diag Imaging Result Doc PS360 ---
CHEST-2 VIEWS - 11/25/2018 INDICATION: atelectasis COMPARISON: 11/23/2018 FINDINGS: There has been improvement in the mild infiltrate or atelectasis at the left lower lobe. The right lung remains clear. Heart size and pulmonary vascularity is normal. No pneumothorax or pleural effusion. IMPRESSION: Improved left lower lobe infiltrate or atelectasis. Electronically signed by Gaurav Andujar 11/25/2018 8:29 AM
[2018-11-25] MEDS: ISOPTIN SR PO SCH (08:49)
[2018-11-25] MEDS: ZANTAC PO SCH (08:49)
[2018-11-25] MEDS: HYDROCHLOROTHIAZIDE PO SCH (08:49)
[2018-11-25] MEDS: ZYLOPRIM PO SCH (08:50)
[2018-11-25] MEDS: VITAMIN B-12 PO SCH (08:50)
[2018-11-25] MEDS: VITAMIN D PO SCH (08:51)
[2018-11-25] MEDS: LOVENOX SUBQ SCH (08:56)
[2018-11-25] MEDS: ROCEPHIN 1 GM in NS 50 ML IV SCH (08:56)
[2018-11-25] MEDS: MAVIK PO SCH (08:58)
[2018-11-25] MEDS: ASPIRIN EC PO SCH (08:58)
[2018-11-25 10:27] LABS: ALLEN TEST YES; BE 6.9 mmoll (-3.0-3.0); BLOOD TYPE ARTERIAL; HCO3-(ACT) 30.1 mmoll (20.0-26.0); METHB 0.6 % (0.0-1.5); O2(CT) 18.2 mL/dL (15.0-23.0); O2HB 90.1 % (95.0-99.0); PO2(98.6) 60 mmHg (60-100); SAMPLE BLOOD; SAO2 92.2 % (95.0-100.0); THB 14.4 g/dL (11.5-17.4); pH(98.6) 7.35 (7.35-7.45)
[2018-11-25 10:28] LABS: MODALITY CANNULA; PCO2(98.6) 63 mmHg (35-45)
[2018-11-25 11:42] VITALS: BP 142/65
--- NOTE | 2018-11-26 19:09 | DISCHARGE SUMMARY ---
ADMISSION DATE: 11/22/2018 DISCHARGE DATE: 11/25/2018 PRINCIPAL DIAGNOSIS: Chronic obstructive pulmonary disease exacerbation. SECONDARY DIAGNOSES: 1. Community-acquired pneumonia. 2. Benign prostatic hypertrophy. 3. Diabetes mellitus. 4. Hypertension. 5. Chronic kidney disease. 6. History of tiny, nonspecific, hyperdense renal lesions. 7. Gout. 8. Sleep apnea. DISCHARGE MEDICATIONS: Include the followin. Advair 250/25 one puff twice a day. 2. Combivent Respimat 1 puff every 6 hours. 3. Medrol Dosepak as directed. 4. Levaquin 500 mg p.o. daily for 7 days. 5. Flomax 0.4 mg p.o. at bedtime. 6. Ambien 5 mg p.o. at bedtime. 7. DuoNeb 1 unit dose q.6 hours. 8. Allopurinol 100 mg p.o. daily. 9. Verapamil 240 mg p.o. daily. 10. Vitamin D3 400 units daily. 11. Metformin 500 mg p.o. twice a day. 12. Aspirin 81 mg p.o. daily. 13. Hydrochlorothiazide 12.5 mg p.o. daily. 14. Zofran ODT 8 mg every 8 hours. 15. Ranitidine 300 mg p.o. daily. 16. Trandolapril 4 mg p.o. daily. 17. Daliresp 250 mcg p.o. at bedtime. CONSULTATIONS DONE DURING THIS HOSPITAL STAY: David Yan MD, Pulmonology. PROCEDURES DONE DURING THIS HOSPITALIZATION: 1. Head CT 11/23/2018. 2. CT scan of the abdomen and pelvis 11/23/2018. HOSPITAL COURSE: Mr. Raheem Gonzalez was admitted to the hospital because of COPD exacerbation. He was placed on nebulized bronchodilators, steroids, as well as antibiotics. He was also managed for community-acquired pneumonia by means of antibiotics. The patient was noted to have CO2 retention. However, on the review of his pH, he is well compensated. Down the road, the patient may end up needing a BiPAP machine. At this time, the patient has done well. He is stable. PHYSICAL EXAMINATION: Vital signs: Temperature 97.7, pulse 77, respiratory rate 18, blood pressure 142/65, oxygen saturation 98%. HEENT: Atraumatic, normocephalic. Cardiovascular system: S1, S2. Respiratory system: Evidence of good air entry bilaterally. Abdomen: Soft, nontender. No masses felt. Extremities: No evidence of edema. Central nervous system: No obvious focal deficits noted. LABORATORY: AB.35/63/60/92.2. PLAN: The patient can be discharged home today. 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 cc: Chandrakant Shields MD
== END 2018-11-25 15:45 | disposition home or self-care (01) | DRG 193 ==
LOC: ED 08:46 → EDIPHOLD 11:55 → 3N 13:06
PROVIDERS: ATTEND Internal Medicine
CPT/HCPCS: 70450; 71020; 71046; 74176; 80053; 82805; 82948; 83036; 83605; 83880; 84484; 85025; 85379; 85610; 85730; 87040; 93005; 94640; 94761; 94799; 96365; 96367; 99285; A9270; J0456; J0696; J1650; J1940; J2930; J7030; XXXXX